=== PATIENT | female | born 1995 | race Caucasian/White ===

== ENCOUNTER 2018-10-07 21:00 | Emergency (ER) | payer OTHER ==
[2014-04-29 19:46] VITALS: BP 122/76
[2018-10-07] MEDS ORDERED: MORPHINE SULFATE 4 MG/ML VIAL ONE (23:07)
[2018-10-07] MEDS ORDERED: NORMAL SALINE 1,000 ML IV.SOLN IV ONE (23:07)
[2018-10-07] MEDS ORDERED: KETOROLAC TROMETHAMINE 30 MG/1ML VIAL ONE (23:07)
[2018-10-07] MEDS ORDERED: DEXAMETHASONE SOD PHOS 4 MG/ML VIAL ONE (23:07)
[2018-10-07] MEDS ORDERED: ONDANSETRON HCL/PF 4 MG/ 2ML VIAL ONE (23:07)
== END 2018-10-08 00:04 | disposition home or self-care (01) ==
LOC: ED 21:00
DX: G43.909 Migraine, unspecified, not intractable, without status migrainosus (principal)
CPT/HCPCS: 96365; 96375; 99282; 99284; J1100; J1885; J2270; J2405; J7030; S1016

== ENCOUNTER 2018-11-12 05:19 | Emergency (ER) | payer OTHER ==
[2018-11-12] MEDS ORDERED: 0.9 % SODIUM CHLORIDE 1,000 ML IV ONE ×2 (05:35→05:38)
--- NOTE | 2018-11-12 05:35 | ED Physician Documentation ---
General Adult - HISTORIAN Historian: patient - HPI Stated Complaint: headache Chief Complaint: General Adult Onset: hours Timing: still present Severity: moderate Further Comments: yes (Pt is a 23 yo female with migraine headache. Pt was last seen here for migraine on 10/08/18 and was tx'd with Imitrex. 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 Pt describes pain as 9/10 severity. No focal deficits.) - ROS CONST: no problems EYES/ENT: none CVS/RESP: none GI/: nausea MS/SKIN/LYMPH: none NEURO/PSYCH: headache - PAST HX Past History: other (migaine) Allergies/Adverse Reactions: Allergies Allergy/AdvReac Type Severity Reaction Status Date / Time No Known Allergies Allergy Verified 11/12/18 05:44 Home Medications: Ambulatory Orders Medication Instructions Recorded Citalopram Hydrobromide [Celexa] 10 mg PO D 10/29/13 SUMAtriptan SUCCINATE [Imitrex] 25 mg PO PRN 10/29/13 l-Norgest/E.estradiol-E.estrad 1 each PO D 10/29/13 [Seasonique 0.15-0.03-0.01 Tab] - SOCIAL HX Smoking History: non-smoker - FAMILY HX Family History: No - VITAL SIGNS Vital Signs: Vital Signs Temp Pulse Resp BP Pulse Ox 122/76 04/29/14 19:10 - REVIEWED ASSESSMENTS Nursing Assessment Reviewed: Yes Vitals Reviewed: Yes Progress - Progress Progress: Phenergan 25 mg IV in IVF NS 1 L IVF Toradol 30 mg IV General Adult Physical Exam - PHYSICAL EXAM GENERAL APPEARANCE: moderate distress EENT: eye inspection normal, ENT inspection normal, pharynx normal NECK: normal inspection, supple RESPIRATORY: no resp distress, chest non-tender, breath sounds normal CVS: reg rate & rhythm, heart sounds normal, equal pulses ABDOMEN: soft BACK: normal inspection, no CVA tenderness SKIN: warm/dry, normal color EXTREMITIES: non-tender, normal range of motion, no evidence of injury NEURO: oriented X3, CN's nml as tested, motor nml, sensation nml Discharge Clincal Impression: Migraine Qualifiers: Migraine type: without aura Status migrainosus presence: without status migrainosus Intractability: not intractable Qualified Code(s): G43.009 - Migraine without aura, not intractable, without status migrainosus Referrals: Cherie Ramey MD [Primary Care Provider] - 2 Days Condition: Stable Disposition: 01 HOME, SELF-CARE Decision to Admit: NO Decision Time: 06:57
[2018-11-12] MEDS ORDERED: PROMETHAZINE HCL 25 MG/ML VIAL ONE (05:36)
[2018-11-12] MEDS ORDERED: PROMETHAZINE HCL 25 MG in 0.9 % SODIUM CHLORIDE 50 ML IV PRN (05:38)
[2018-11-12] MEDS ORDERED: KETOROLAC TROMETHAMINE 30 MG/1ML VIAL IVP ONE (06:18)
[2018-11-12] MEDS ORDERED: KETOROLAC TROMETHAMINE 30 MG/1ML VIAL ONE (06:18)
[2018-11-12 07:10] VITALS: BP 126/77
[2018-11-12 12:59] LABS: APPEARANCE,URINE CLEAR (CLEAR); COLOR,URINE YELLOW (YELLOW)
[2018-11-12 13:05] LABS: OCCULT BLOOD,URINE 1+ (NEGATIVE); PH URINE 5.5 (5.0 - 8.0); UROBILINOGEN URINE 0.2 Eu (0.2-1.0)
== END 2018-11-12 07:12 | disposition home or self-care (01) ==
LOC: ED 05:19
DX: G43.009 Migraine without aura, not intractable, without status migrainosus (principal)
CPT/HCPCS: 81002; 96374; 96375; 99283; 99284; J1885; J2550; J7030; S1016

== ENCOUNTER 2019-08-07 21:19 | Emergency (ER) | payer SELFPAY ==
--- NOTE | 2019-08-07 21:23 | ED Physician Documentation ---
Headache - HISTORIAN Historian: patient - HPI Stated Complaint: migraine since 5 am with a history Chief Complaint: Headache Onset: hours (14) Timing: still present New Gradual Onset: No Exposure To: none Severity: moderate Quality: similar to previous Associated Symptoms: problems with vision, sensitivity to light, nausea, vomiting. denies: fever, chills Preceding Symptoms: visual disturbance Exacerbated By: light, noise, movement, position Further Comments: yes (She states she has a history of migraines and she took her normal abortive therapy and this was not helping. She notes she has normal pains but usually the IM works at home this time it did not. No head injury no other injuries She states she has no recent illness. She is due to start botox in a few days for her migraines which her Neuro is aware are starting to increase in severity and frequency.) - ROS NEURO/PSYCH: denies: confusion, anxiety, depression, fainting EYES/ENT: denies: sore throat, difficulty swallowing CVS/RESP: none GI/: denies: abdominal pain MS/SKIN/LYMPH: denies: muscle aches - PAST HX Medical History: other (migraines ) Surgical History: appendectomy Immunizations: UTD Allergies/Adverse Reactions: Allergies Allergy/AdvReac Type Severity Reaction Status Date / Time No Known Allergies Allergy Verified 08/07/19 21:30 Home Medications: Ambulatory Orders Medication Instructions Recorded SUMAtriptan SUCCINATE [Imitrex] 25 mg PO TID PRN 10/29/13 l-Norgest/E.estradiol-E.estrad 1 each PO D 10/29/13 [Seasonique 0.15-0.03-0.01 Tab] Fluoxetine HCl [Prozac] 20 mg PO DAILY 08/07/19 - SOCIAL HX Smoking History: non-smoker Alcohol Use: none Drug Use: none - Family HX Family History: none - VITAL SIGNS Vital Signs: Vital Signs Temp Pulse Resp BP Pulse Ox 97.1 F L 77 16 112/69 98 08/07/19 22:24 08/07/19 22:24 08/07/19 22:24 08/07/19 22:24 08/07/19 22:24 - REVIEWED ASSESSMENTS Nursing Assessment Reviewed: Yes Vitals Reviewed: Yes ED Results Lab/Radiology - Orders Orders: ED Orders Category Date Time Status IV Started NOW Care 08/07/19 21:32 Active 0.9 % Sodium Chloride [Normal Saline] 1,000 ml Med 08/07/19 21:34 Discontinued IV NOW Dexamethasone Sodium Phosphate [Decadron] Med 08/07/19 21:33 Discontinued 4 mg IV NOW ONE Ketorolac Tromethamine [Toradol] Med 08/07/19 21:33 Discontinued 30 mg IV NOW ONE Ondansetron HCl/Pf [Zofran] Med 08/07/19 21:32 Discontinued 4 mg IVP NOW ONE Headache Physical Exam - EXAM General Appearance: no acute distress, alert, mild distress EENT: no facial swelling, eyes nml inspection, PERRL Neck: normal inspection Respiratory: no resp distress, chest non-tender, breath sounds normal CVS: reg. rate & rhythm, heart sounds nml Abdomen: non-tender, nml bowel sounds Skin: color nml, no rash Extremitites: non-tender - NEURO/PSYCH Higher Functions: alert, oriented x3, nml speech, mood/affect nml, slow to respond Cranial: nml as tested Cerebellar: nml as tested Sensorimotor: motor nml Discharge Clincal Impression: Migraine Qualifiers: Migraine type: with aura Status migrainosus presence: with status migrainosus Intractability: intractable Qualified Code(s): G43.111 - Migraine with aura, intractable, with status migrainosus Referrals: Cherie Ramey MD [Primary Care Provider] - 2 Days Comments: 1. Continue home meds as prescribed 2. Notify Neuro in AM of visit 3. Follow up with PCP or Neurologist as needed 4. Return to ER for any increased concerns Condition: Stable Disposition: 01 HOME, SELF-CARE Decision to Admit: NO (t) Date of Decison to Admit: 08/07/19 Decision Time: 22:20
[2019-08-07] MEDS: 0.9 % SODIUM CHLORIDE 1,000 ML IV ONE (21:42)
[2019-08-07] MEDS: DEXAMETHASONE SOD PHOS 4 MG/ML VIAL IV ONE (21:53)
[2019-08-07] MEDS: ONDANSETRON HCL/PF 4 MG/ 2ML VIAL IVP ONE (21:53)
[2019-08-07] MEDS: KETOROLAC TROMETHAMINE 30 MG/1ML VIAL IV ONE (21:53)
[2019-08-07 22:36] VITALS: BP 112/69
== END 2019-08-07 22:24 | disposition home or self-care (01) ==
LOC: ED 21:19
DX: G43.111 Migraine with aura, intractable, with status migrainosus (principal)
CPT/HCPCS: 96361; 96374; 96375; 99282; 99284; J1100; J1885; J2405; J7030; S1016